=== PATIENT | male | born 1970 | race Hispanic/Latino ===

== ENCOUNTER 2017-04-01 10:09 | Outpatient (CLI) | payer OTHER ==
--- NOTE | 2017-04-01 12:20 | RAD ---
FOUR VIEWS CERVICAL SPINE: INDICATIONS: History of fall 8 to 10 feet from a ladder with a neck injury. The patient has a reported history o f a fracture involving the cervical spine. COMPARISON: None. FINDINGS: The lateral masses appear symmetric. The cervical spine is evaluated up to the C7-T1 level on the l ateral projection. There is mild anterior translation of C6 on C7. There is mild disk degenerative disease seen involving the cervical spine, most pronounced at C4-C5 and C5-C6. No definite acute f racture is noted. IMPRESSION: 1. Slight anterior translation of C6 on C7 could be degenerative in nature; however, in light of th e patient's history of trauma, ligamentous injury cannot be entirely excluded. MRI examination of t he cervical spine is recommended. 2. Mild spondylosis of the cervical spine. POS: [facility]
== END 2017-04-01 10:10 | disposition home or self-care (01) ==
LOC: TBSIIMAG 10:09
PROVIDERS: ATTEND Neurological Surgery
DX: S12.9XXA Fracture of neck, unspecified, initial encounter (principal); M47.812 Spondylosis without myelopathy or radiculopathy, cervical region
CPT/HCPCS: 72040

== ENCOUNTER 2017-04-02 10:03 | Outpatient (CLI) | payer OTHER ==
--- NOTE | 2017-04-02 11:30 | RAD ---
CERVICAL SPINE AP AND LATERAL: HISTORY: Fracture of neck initial encounter. Fall February 07, 2017. FINDINGS: There is very low-grade anterolisthesis of C6 over C7. On the neutral radiograph, this is approxima tely 2 mm. In flexion, this is similar. In extension, this is slightly decreased to approximately 1 mm. IMPRESSION: A 2 mm anterolisthesis of C6 over C7 which does not changed in flexion, although slightly decreases with extension. POS: [facility]
== END 2017-04-02 10:04 | disposition home or self-care (01) ==
LOC: TBSIIMAG 10:03
PROVIDERS: ATTEND Neurological Surgery
DX: S12.9XXA Fracture of neck, unspecified, initial encounter (principal)
CPT/HCPCS: 72040